=== PATIENT | female | born 1980 | race Caucasian/White ===

== ENCOUNTER 2021-10-10 05:28 | Outpatient (CLI) | payer BC ==
[~2021-10-10] VITALS: Ht 167 cm; Wt 118.0 kg
[2021-10-11] MEDS ORDERED: METF-478 PO (17:26)
[2021-10-11] MEDS ORDERED: FLUO20CA42 PO (17:26)
== END 2021-10-11 17:31 | disposition home or self-care (01) ==
LOC: PREOP 05:28
PROVIDERS: ATTEND Otolaryngology Otolaryngology/Facial Plastic Surgery
DX: Z01.818 Encounter for other preprocedural examination (principal)

== ENCOUNTER 2021-10-17 06:30 | Day surgery (SDC) | payer BC ==
[2021-10-17] VITALS (10 sets, daily range): BP systolic 116–144; BP diastolic 66–98
[~2021-10-17] VITALS: Ht 167 cm; Wt 118.0 kg
[~2021-10-17 06:30] MED LIST: FLUO20CA42 PO; METF-478 PO
[2021-10-17] MEDS: LACTATED RINGERS 1,000 ML IV PRN ×2 (07:00→08:50)
[2021-10-17 07:16] LABS: BASOPHILS % (AUTO) 0 % (0-10); EOSINOPHILS # (AUTO) 0.3 10^3/uL (0.0-0.3); EOSINOPHILS % (AUTO) 3 % (0-10); HEMATOCRIT 35 % (35-52); HEMOGLOBIN 10.9 g/dL (11.5-16.0); LYMPHOCYTES # (AUTO) 2.8 10^3/uL (1.0-4.0); LYMPHOCYTES % (AUTO) 29 % (12-44); MEAN CORPUSCULAR HEMOGLOBIN 23 pg (25-34); MEAN CORPUSCULAR HGB CONC 31 g/dL (32-36); MEAN CORPUSCULAR VOLUME 72 fL (80-99); MEAN PLATELET VOLUME 10.3 fL (9.0-12.2); MONOCYTES # (AUTO) 0.7 10^3/uL (0.0-1.0); MONOCYTES % (AUTO) 7 % (0-12); NEUTROPHILS # (AUTO) 5.8 10^3/uL (1.8-7.8); NEUTROPHILS % (AUTO) 60 % (42-75); PLATELET COUNT 368 10^3/uL (130-400); WHITE BLOOD COUNT 9.6 10^3/uL (4.3-11.0)
[2021-10-17] MEDS ORDERED: MIDAZOLAM 2 MG/2 ML (VERSED) VIAL ONE (07:34)
[2021-10-17] MEDS ORDERED: proPOfol 200 MG/20 ML (DIPRIVAN) VIAL IV ONE (07:34)
[2021-10-17] MEDS ORDERED: ROCURONIUM 50 MG/5 ML (ZEMURON) VIAL IV ONE (07:34)
[2021-10-17] MEDS ORDERED: ONDANSETRON 4 MG/2 ML (SDV) Z0FRAN ONE (07:34)
[2021-10-17] MEDS ORDERED: LIDOCAINE PF 2% 5 ML (XYLOCAINE) VIAL ONE (07:34)
[2021-10-17] MEDS ORDERED: fentaNYL INJ 100 MCG/2 ML AMP ONE (07:34)
--- NOTE | 2021-10-17 08:12 | Progress Note-Pre Operative ---
Pre-Operative Progress Note H&P Reviewed The H&P was reviewed, patient examined and no changes noted. Date Seen by Provider: October 17, 2021 Time Seen by Provider: 07:45 Date H&P Reviewed: October 17, 2021 Time H&P Reviewed: 07:45 Pre-Operative Diagnosis: Chronic Tonsillitis DEMI CARLSON MD October 17, 2021 08:12
[2021-10-17] MEDS ORDERED: NEOSTIGMINE 3 MG/3 ML VIAL ONE (08:25)
[2021-10-17] MEDS ORDERED: GLYCOPYRROLATE 0.2 MG/ML (ROBINUL) 2 ML VIAL ONE (08:25)
[2021-10-17] MEDS ORDERED: SEVOFLURANE (ULTANE) 15 ML INHAL SOLN ONE (08:29)
[2021-10-17] MEDS ORDERED: DESFLURANE (SUPRANE) 15 ML INHAL SOLN ONE (08:29)
--- NOTE | 2021-10-17 08:33 | Progress Note-Post Operative ---
Post-Operative Progess Note Surgeon (s)/Supervisor Instrument Mechanics (s) Surgeon DEMI CARLSON MD Supervisor Instrument Mechanics n/a Pre-Operative Diagnosis Chronic Tonsillitis Post-Operative Diagnosis same Post-Op Procedure Note Date of Procedure: October 17, 2021 Name of Procedure Performed: Tonsillectomy Description & Findings Description and Findings: n/a Anesthesia Type get Estimated Blood Loss minimal Packing none. Specimen(s) collected/removed tonsils DEMI CARLSON MD October 17, 2021 08:33
[2021-10-17] MEDS ORDERED: NS IV 1000 ML 1,000 ML IV SCH (08:45)
[2021-10-17] MEDS ORDERED: PROMETHAZINE INJ 25 MG/ML (PHENERGAN) AMP IVP ONE (08:45)
[2021-10-17] MEDS ORDERED: MEPERIDINE (DEMEROL) INJ 50 MG/ML IVP ONE (08:45)
[2021-10-17] MEDS ORDERED: APAP 325 MG/10.15 ML LIQ (TYLENOL) UDC PO PRN (08:45)
[2021-10-17] MEDS ORDERED: HYDROmorphone 2 MG/ML VIAL (DILAUDID) IV ONE (08:45)
[2021-10-17] MEDS ORDERED: HYDROcodone/APAP 7.5MG-325 MG/15 ML (LORTAB) UDC PO PRN (08:45)
[2021-10-17] MEDS ORDERED: morphine INJ 10 MG/ML 1ML (SYR OR VIAL) IVP ONE (08:45)
[2021-10-17] MEDS ORDERED: ONDANSETRON 4 MG/2 ML (SDV) Z0FRAN IVP PRN (08:45)
[2021-10-17] MEDS ORDERED: HYDR15SO8 PO (09:39)
[2021-10-17] MEDS ORDERED: TETRACAINESUCKERS MT (09:39)
[2021-10-17] MEDS ORDERED: DEXAINTSOL PO (09:39)
[2021-10-17] MEDS ORDERED: AMOX250S5 PO (09:39)
--- NOTE | 2021-10-17 10:23 | Anesthesia-General Post-Op ---
General Patient Condition Mental Status/LOC: Same as Preop Cardiovascular: Satisfactory Nausea/Vomiting: Absent Respiratory: Satisfactory Pain: Controlled Complications: Absent Post Op Complications Complications None Follow Up Care/Instructions Patient Instructions None needed. Anesthesia/Patient Condition Patient Condition Patient is doing well, no complaints, stable vital signs, no apparent adverse anesthesia problems. No complications reported per nursing. BIBIANA SMITH CRNA October 17, 2021 10:22
== END 2021-10-17 11:15 | disposition home or self-care (01) ==
LOC: SDC 06:30
PROVIDERS: ATTEND Otolaryngology Otolaryngology/Facial Plastic Surgery
DX: J35.01 Chronic tonsillitis (principal); J35.8 Other chronic diseases of tonsils and adenoids; A42.89 Other forms of actinomycosis
CPT/HCPCS: 36415; 84703; 85025; 87081; 88304